=== PATIENT | male | born 1985 | race Caucasian/White ===

== ENCOUNTER 2017-06-13 10:10 | Emergency (ER) | payer OTHER ==
[~2017-06-13] VITALS: Ht 193 cm; Wt 108.5 kg
[2017-06-13 10:14] VITALS: BP 147/80
== END 2017-06-13 13:37 | disposition left against medical advice (07) ==
LOC: ED 13:29
DX: R51 Headache (principal); Z53.21 Procedure and treatment not carried out due to patient leaving prior to being seen by health care provider; Z88.0 Allergy status to penicillin

== ENCOUNTER 2019-11-20 08:51 | Emergency (ER) | payer OTHER ==
[~2019-11-20] VITALS: Ht 193 cm; Wt 114.3 kg
[2019-11-20 08:59] VITALS: BP 159/85
[2019-11-20 09:51] LABS: RAPID INFLUENZA A Negative (Negative); RAPID INFLUENZA B Negative (Negative)
--- NOTE | 2019-11-20 09:56 | NUR ---
assumed care of pt in [facility]. flu neg/cxr neg. call mullen in reach. as
[2019-11-20 10:42] LABS: TROPONIN I < 0.015 ng/mL (0.000-0.045)
== END 2019-11-20 11:24 | disposition home or self-care (01) ==
LOC: ED 11:20
DX: J00 Acute nasopharyngitis [common cold] (principal); I10 Essential (primary) hypertension; Z88.0 Allergy status to penicillin
CPT/HCPCS: 36415; 71046; 84484; 87400; 93005; 99284

== ENCOUNTER → 2020-10-01 | Outpatient (CLI) | payer OTHER | END | disposition home or self-care (01) | LOC: RAD 09:36 | PROVIDERS: ATTEND Nurse Practitioner Primary Care | DX: E05.90 Thyrotoxicosis, unspecified without thyrotoxic crisis or storm (principal) | CPT/HCPCS: 78013; A9516 ==